=== PATIENT | male | born 1970 | race Caucasian/White ===

== ENCOUNTER 2018-01-16 18:40 | Day surgery (SDC) | payer OTHER ==
[2018-01-15 09:18] LABS: HEMATOCRIT 43.2 % (42.0-54.0); HEMOGLOBIN 14.7 g/dL (13.5-17.5); MCV 91.1 fL (80.0-100.0); MEAN PLATELET VOLUME 10.1 fL (7.4-10.4); RBC 4.74 10x6/uL (4.20-6.10); RDW 12.8 % (11.5-14.5); WBC 8.3 10x3/uL (4.8-10.8)
[2018-01-16] VITALS (7 sets, daily range): BP systolic 110–143; BP diastolic 69–97; Ht 185.4 cm; Wt 138.6 kg
[~2018-01-16] VITALS: Ht 185.4 cm; Wt 138.6 kg
--- NOTE | ~2018-01-16 | OP ---
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 Left C7 radiculopathy. 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 Left C7 radiculopathy. Failed fusion at C6-C7 with redo fusion necessary. PROCEDURE: Anterior cervical discectomy and fusion, redo, at C6-7 with Zavation anterior cervical plate and screws using 4-screw plate and Donna bone allograft with stem cells and PEEK interbody cage. Removal of anterior cervical plate at C5, C6, and C7. SURGEON: Vincent Helm MD DESCRIPTION OF TECHNIQUE: After induction of general endotracheal anesthesia, the patient was positioned supine on the operating table. Neck was prepped and draped in usual sterile fashion. Fluoroscopic x-ray and [place] dissector localized the previous anterior cervical plate. A transverse skin incision was carried out from the midline to the sternocleidomastoid muscle. The platysma was divided with Bovie cautery. Using blunt and sharp dissection with Metzenbaum scissors, I proceeded in avascular plane medial to the carotid sheath. The old anterior cervical plate was dissected free with Bovie cautery from the surrounding scar tissue. The inner set screws were removed from the plate with appropriate screwdrivers. 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 This was confirmed with distraction with the [place] distracting pins, which showed motion at that disc space. Self-retaining retractor was placed deep to the longus colli muscles. Midas Andres drill and microscope were used to remove fibrous nonunion as well as curettes. Posteriorly, there was an osteophyte, was removed with Midas-Andres drill and microscope. A 10-mm PEEK interbody cage was placed in disc space under distraction. Prior to this, it was filled with Donna bone allograft with stem cells. Next, a 4-screw plate using variable angle screws from [employer] was used to span the C6-C7 interspace. The locking cams were tightened down over the screw heads. Meticulous hemostasis was maintained throughout the wound. There was good position of the hardware on AP and lateral x-ray. The platysma and subdermal layer were closed with interrupted 3-0 Vicryl suture. The skin was reapproximated with Steri-Strips and benzoin. A sterile dressing was applied to the wound. The patient was awakened in good condition and taken to recovery. All counts were reported as correct. Estimated blood loss was minimal. TRANSINT:[id number] Voice Confirmation ID: [id number] DOCUMENT ID: [id number] OPERATIVE REPORT [id number] YUMI VALERIO JOHN MD at 0930 CC: [id number] DICTATION DATE: 01/16/18 175 SERVICE WRITER ADVISOR: 01/16/18 1844 [facility] [address] [place] [address]
[~2018-01-16 18:40] MED LIST: ATIVAN0.5 MG PO; COZAAR100 MG PO; PROPRANOLOL HCL20 MG PO; ZANAFLEX4 MG PO
[2018-01-17] VITALS (10 sets, daily range): BP systolic 105–139; BP diastolic 66–91
== END 2018-01-17 10:45 | disposition home or self-care (01) ==
LOC: D.ICU 18:40 → D.OPS 18:40
PROVIDERS: Anesthesiology
DX: M54.12 Radiculopathy, cervical region (principal); Z01.812 Encounter for preprocedural laboratory examination; I10 Essential (primary) hypertension; Z87.891 Personal history of nicotine dependence

== ENCOUNTER → 2018-03-15 10:37 | Outpatient (CLI) | payer OTHER | END | disposition home or self-care (01) | LOC: D.CT 10:37 | DX: M54.12 Radiculopathy, cervical region (principal) ==

== ENCOUNTER → 2018-09-19 13:24 | Outpatient (CLI) | payer MEDICARE | END | disposition home or self-care (01) | LOC: D.CT 08-02 13:30 | PROVIDERS: ATTEND Neurological Surgery | DX: M54.12 Radiculopathy, cervical region (principal); M48.02 Spinal stenosis, cervical region ==